=== PATIENT | male | born 1980 | race Caucasian/White ===

== ENCOUNTER 2022-09-02 07:18 | Day surgery (SDC) | payer OTHER ==
[~2022-09-02] VITALS: Ht 172.7 cm; Wt 64.0 kg
[2022-09-02 07:30] VITALS: BP 129/82
[2022-09-02 07:42] LABS: HEMATOCRIT 33.8 % (39.0-50.0); HEMOGLOBIN 11.4 g/dl (14.0-18.0); IMMATURE GRANULOCYTES 0.2 % (0.0-5.0); MEAN CELL VOLUME 81.4 fL CALC (80.0-100.0); MEAN CORPUSCULAR HGB 27.5 pG CALC (26.0-32.0); MEAN CORPUSCULAR HGB CONC 33.7 g/dL CAL (32.0-36.0); NEUT# 2.25 thou/uL (1.82-7.42); RED BLOOD COUNT 4.15 mill/uL (4.70-6.10); RED CELL DISTRI WIDTH 13.1 % (11.5-15.5)
[2022-09-02 08:03] LABS: ALBUMIN 4.2 g/dL (3.2-5.0); ALKALINE PHOSPHATASE 233 u/l (38-126); ANION GAP 11 (6-22 (CALC)); BILIRUBIN, TOTAL 0.4 mg/dL (0.0-1.4); BUN 16 mg/dL (9-20); BUN/CREATININE RATIO 20 (12-20 (CALC)); CARBON DIOXIDE 30 mmol/l (22-30); CHLORIDE 103 mmol/l (95-108); CREATININE 0.8 mg/dL (0.7-1.3); GFR FOR AFR.AMER. > 60 ML/MIN (>=60 (CALC)); GFR OTHER RACES > 60 ML/MIN (>=60 (CALC)); POTASSIUM 4.2 mmol/l (3.5-5.1); SGOT/AST 239 u/l (17-59); SODIUM 140 mmol/l (137-146); TOTAL PROTEIN 7.2 g/dL (6.3-8.2)
[2022-09-02] MEDS ORDERED: CLONIDINE0.1 MG PO (08:43)
[2022-09-02] MEDS ORDERED: GABAPENTIN600 MG PO (08:44)
[2022-09-02] MEDS ORDERED: KLONOPIN2 MG PO (15:10)
[2022-09-02 19:24] VITALS: BP 126/74
[2022-09-02 22:32] VITALS: BP 119/69
[2022-09-03 03:44] VITALS: BP 136/74
[2022-09-03 07:18] VITALS: BP 116/66
[2022-09-03 07:40] VITALS: BP 116/66
[2022-09-03 07:51] LABS: HEMATOCRIT 35.8 % (39.0-50.0); HEMOGLOBIN 12.2 g/dl (14.0-18.0); IMMATURE GRANULOCYTES 0.1 % (0.0-5.0); MEAN CELL VOLUME 81.4 fL CALC (80.0-100.0); MEAN CORPUSCULAR HGB 27.7 pG CALC (26.0-32.0); MEAN CORPUSCULAR HGB CONC 34.1 g/dL CAL (32.0-36.0); NEUT# 7.67 thou/uL (1.82-7.42); RED BLOOD COUNT 4.4 mill/uL (4.70-6.10); RED CELL DISTRI WIDTH 12.9 % (11.5-15.5)
[2022-09-03 08:57] LABS: ALBUMIN 4.2 g/dL (3.2-5.0); ALKALINE PHOSPHATASE 211 u/l (38-126); BUN 17 mg/dL (9-20); BUN/CREATININE RATIO 25 (12-20 (CALC)); CHLORIDE 104 mmol/l (95-108); CREATININE 0.7 mg/dL (0.7-1.3); GFR FOR AFR.AMER. > 60 ML/MIN (>=60 (CALC)); GFR OTHER RACES > 60 ML/MIN (>=60 (CALC)); MAGNESIUM 2.1 mg/dL (1.6-2.3); POTASSIUM 4.4 mmol/l (3.5-5.1); SGOT/AST 81 u/l (17-59); SODIUM 140 mmol/l (137-146); TOTAL PROTEIN 7.3 g/dL (6.3-8.2)
[2022-09-03 09:01] LABS: ANION GAP 18 (6-22 (CALC)); BILIRUBIN, TOTAL 0.8 mg/dL (0.0-1.4); CARBON DIOXIDE 22 mmol/l (22-30)
== END 2022-09-03 14:01 | disposition home or self-care (01) | DRG 897 ==
LOC: ANR 07:18 → MS2 07:18 → ANR 08:00
PROVIDERS: ATTEND Anesthesiology Critical Care Medicine
DX: F11.20 Opioid dependence, uncomplicated (principal)
CPT/HCPCS: J2354